=== PATIENT | female | born 1985 | race Caucasian/White ===

== ENCOUNTER → 2021-12-04 | Outpatient (CLI) | payer OTHER ==
[~2021-12-04] MED LIST: CLINDAMYCIN HC300 MG PO; IBUPROFEN800 MG PO; NORCO 7.5-3251 EACH PO; VITAMIN D250000 UNIT PO; ZYRTEC10 M3 PO
== END ==
LOC: HEART 192 12-02 07:30 → HEART 5 12-02 14:00
DX: R55 Syncope and collapse (principal)